=== PATIENT | female | born 1985 | race Caucasian/White ===

== ENCOUNTER 2020-09-17 16:38 | Emergency (ER) | payer OTHER ==
[~2020-09-17 16:38] MED LIST: BACTROBAN NASAL1 G1 TOP; CORTIZONE-1057 GM TP; FELDENE10 MG PO; PREDNISONE 50 M50 MG PO
[2020-09-17] MEDS ORDERED: IBU800 MG PO (17:09)
[2020-10-02] MEDS ORDERED: HYDROCODON-ACE1 EAC2 PO (14:29)
== END 2020-09-17 17:19 | disposition home or self-care (01) ==
LOC: ER1 16:38
DX: S62.326A Displaced fracture of shaft of fifth metacarpal bone, right hand, initial encounter for closed fracture (principal); Y33.XXXA Other specified events, undetermined intent, initial encounter; W22.8XXA Striking against or struck by other objects, initial encounter
CPT/HCPCS: 29125; 73130; 99283

== ENCOUNTER → 2020-10-02 | Day surgery (SDC) | payer OTHER ==
[~2020-10-02] MED LIST changes: +HYDROCODON-ACE1 EAC2 PO; +IBU800 MG PO
[2020-10-02 10:33] LABS: HEMOGLOBIN 13.8 gm/dl (12.3-15.3); RED BLOOD COUNT 5.08 M/UL (4.00-5.10); WHITE BLOOD COUNT 8.3 K/UL (4.5-11.0)
[2020-10-02 10:54] LABS: BUN/CREATININE RATIO 23 (0-10)
== END | disposition home or self-care (01) ==
LOC: OR 07:30
PROVIDERS: Orthopaedic Surgery
DX: S62.606A Fracture of unspecified phalanx of right little finger, initial encounter for closed fracture (principal); Z90.49 Acquired absence of other specified parts of digestive tract; Z88.8 Allergy status to other drugs, medicaments and biological substances; W50.0XXA Accidental hit or strike by another person, initial encounter
CPT/HCPCS: 36415; 71045; 73130; 76000; 80048; 85027; 93005; C1713; J1100; J1170; J2250; J2405; J2704; J3010; J7120

== ENCOUNTER 2022-02-14 09:35 | Emergency (ER) | payer OTHER ==
[~2022-02-14] VITALS: Ht 154.9 cm; Wt 74.8 kg
[2022-02-14 10:35] LABS: RED BLOOD COUNT 5.71 M/UL (4.00-5.10); WHITE BLOOD COUNT 9.2 K/UL (4.5-11.0)
[2022-02-14 11:17] LABS: BUN/CREATININE RATIO 12 (0-10)
[2022-02-17 18:12] LABS: HBSAG SCREEN Negative (Negative); HCV AB >11.0 (0.0-0.9); HCV LOG10 6.989 (.); HEP A AB, IGM Negative (Negative); HEP B CORE AB, IGM Negative (Negative); HEPATITIS C QUANTITATION 9760000 IU/mL (.)
== END 2022-02-14 20:35 | disposition short-term general hospital (02) ==
LOC: ER1 09:35 → CDU 12:49
PROVIDERS: Emergency Medicine
DX: N39.0 Urinary tract infection, site not specified (principal); B17.9 Acute viral hepatitis, unspecified; E87.6 Hypokalemia; Z88.6 Allergy status to analgesic agent; Z88.1 Allergy status to other antibiotic agents
CPT/HCPCS: 0240U; 71045; 80053; 80074; 80307; 81001; 82550; 82553; 83605; 84484; 84703; 85025; 85610; 87040; 87077; 87086; 87186; 93005; 96374; 96375; 99285; J1956; J2185; J2405